=== PATIENT | male | born 1980 | race Caucasian/White ===

== ENCOUNTER 2017-07-04 20:50 | Emergency (ER) | payer OTHER ==
[~2017-07-04] VITALS: Ht 193 cm; Wt 140.6 kg
[~2017-07-04 20:50] MED LIST: BP MED PO; GLIP5 PO; METAMUCIL660 GM PO; METF500 PO; PROBIOTIC1 EAC1 PO
== END 2017-07-04 22:34 | disposition home or self-care (01) ==
LOC: ER 20:50
DX: M70.22 Olecranon bursitis, left elbow (principal); Z88.8 Allergy status to other drugs, medicaments and biological substances; Z79.899 Other long term (current) drug therapy; Z79.84 Long term (current) use of oral hypoglycemic drugs; I10 Essential (primary) hypertension; E11.9 Type 2 diabetes mellitus without complications
CPT/HCPCS: 73080; 99283

== ENCOUNTER → 2018-04-25 | Outpatient (CLI) | payer OTHER | END | disposition home or self-care (01) | LOC: LAB SHORT 08:07 → PLD 08:07 | DX: I87.2 Venous insufficiency (chronic) (peripheral) (principal) | CPT/HCPCS: 88305 ==

== ENCOUNTER 2020-01-15 15:39 | Emergency (ER) | payer OTHER ==
[~2020-01-15] VITALS: Ht 193 cm; Wt 145.2 kg
[2020-01-15] MEDS ORDERED: Robaxin-750750 MG PO (15:53)
[2020-01-15] MEDS ORDERED: IBUP800 PO (15:53)
== END 2020-01-15 15:55 | disposition home or self-care (01) ==
LOC: ER 15:39
DX: G89.29 Other chronic pain (principal); M54.5 Low back pain; I10 Essential (primary) hypertension; E11.9 Type 2 diabetes mellitus without complications; Z88.8 Allergy status to other drugs, medicaments and biological substances; Z79.84 Long term (current) use of oral hypoglycemic drugs; Z79.899 Other long term (current) drug therapy
CPT/HCPCS: 99283

== ENCOUNTER 2022-03-15 12:49 | Emergency (ER) | payer OTHER ==
[~2022-03-15] VITALS: Ht 193 cm; Wt 145.2 kg
[~2022-03-15 12:49] MED LIST changes: +IBUP800 PO; +Robaxin-750750 MG PO
[2022-03-15 14:24] LABS: BASOPHILS ABSOLUTE AUTO 0.03 K/mm3 (0.00-0.23); BASOPHILS PERCENT AUTO 0 % (0-2); EOSINOPHILS ABSOLUTE AUTO 0.02 K/mm3 (0.00-0.68); EOSINOPHILS PERCENT AUTO 0 % (0-6); Hematocrit 45.6 % (37.0-53.0); Hemoglobin 14.9 g/dL (13.5-17.5); IMMATURE GRAN ABSOLUTE AUTO 0.01 K/mm3 (0.00-0.10); IMMATURE GRAN PERCENT AUTO 0 % (0-1); LYMPHOCYTES ABSOLUTE AUTO 1.36 K/mm3 (0.84-5.20); LYMPHOCYTES PERCENT AUTO 18 % (21-46); MONOCYTES ABSOLUTE AUTO 0.55 K/mm3 (0.16-1.47); MONOCYTES PERCENT AUTO 7 % (4-13); Mean Corpuscular HGB 28.1 pg (26.0-34.0); Mean Corpuscular HGB Conc 32.7 g/dL (31.5-36.5); Mean Corpuscular Volume 86 fL (80-100); Mean Platelet Volume 10.4 fL (9.1-12.4); NEUTROPHILS ABSOLUTE AUTO 5.57 K/mm3 (1.96-9.15); NEUTROPHILS PERCENT AUTO 74 % (41-73); Platelet Count 259 K/mm3 (150-400); RDW Coefficient Variation 15.2 % (11.7-14.2); RDW Standard Deviation 48.3 fL (35.1-46.3); White Blood Cell Count 7.54 K/mm3 (4.00-11.30)
[2022-03-15 14:45] LABS: Albumin, Blood 3.8 g/dL (3.4-5.0); Bilirubin, Total 1.3 mg/dL (0.1-1.0); Bun/Creatinine Ratio 52.9 (12.0-20.0); Creatinine, Blood 0.23 mg/dL (0.60-1.20); Globulin, Blood 3.9 g/dL (2.2-4.0); Potassium, Blood 3.8 mmol/L (3.5-5.5); Total Protein, Blood 7.7 g/dL (6.4-8.2)
== END 2022-03-15 16:57 | disposition home or self-care (01) ==
LOC: ER 12:49
PROVIDERS: Student in an Organized Health Care Education/Training Program
DX: K59.00 Constipation, unspecified (principal); I10 Essential (primary) hypertension; E11.9 Type 2 diabetes mellitus without complications; Z79.899 Other long term (current) drug therapy; Z88.8 Allergy status to other drugs, medicaments and biological substances; Z79.84 Long term (current) use of oral hypoglycemic drugs
CPT/HCPCS: 36415; 74018; 80053; 85025; J3010; J7030

== ENCOUNTER 2023-01-02 14:02 | Emergency (ER) | payer OTHER ==
[~2023-01-02] VITALS: Ht 193 cm; Wt 154.2 kg
[2023-01-02 15:56] LABS: BASOPHILS ABSOLUTE AUTO 0.05 K/mm3 (0.00-0.23); BASOPHILS PERCENT AUTO 1 % (0-2); EOSINOPHILS PERCENT AUTO 2 % (0-6); Hematocrit 47.1 % (37.0-53.0); Hemoglobin 15.3 g/dL (13.5-17.5); IMMATURE GRAN ABSOLUTE AUTO 0.01 K/mm3 (0.00-0.10); IMMATURE GRAN PERCENT AUTO 0 % (0-1); LYMPHOCYTES ABSOLUTE AUTO 1.68 K/mm3 (0.84-5.20); LYMPHOCYTES PERCENT AUTO 27 % (21-46); MONOCYTES ABSOLUTE AUTO 0.53 K/mm3 (0.16-1.47); MONOCYTES PERCENT AUTO 9 % (4-13); Mean Corpuscular HGB 28.7 pg (26.0-34.0); Mean Corpuscular HGB Conc 32.5 g/dL (31.5-36.5); Mean Corpuscular Volume 88 fL (80-100); Mean Platelet Volume 10.7 fL (9.1-12.4); NEUTROPHILS ABSOLUTE AUTO 3.88 K/mm3 (1.96-9.15); NEUTROPHILS PERCENT AUTO 62 % (41-73); Platelet Count 228 K/mm3 (150-400); RDW Coefficient Variation 14.6 % (11.7-14.2); RDW Standard Deviation 47.6 fL (35.1-46.3); Red Blood Cell Count 5.34 M/mm3 (4.30-5.90); White Blood Cell Count 6.25 K/mm3 (4.00-11.30)
[2023-01-02 16:11] LABS: Albumin, Blood 3.6 g/dL (3.4-5.0); Albumin/Globulin Ratio 0.9 (0.8-1.8); Bilirubin, Total 0.9 mg/dL (0.1-1.0); Bun/Creatinine Ratio 75.6 (12.0-20.0); Calcium, Blood 8.6 mg/dL (8.5-10.1); Creatinine, Blood 0.17 mg/dL (0.60-1.20); Potassium, Blood 4.2 mmol/L (3.5-5.5); Total Protein, Blood 7.6 g/dL (6.4-8.2)
[2023-01-02 18:39] LABS: Source, Urine Fem Cath
[2023-01-02 18:48] LABS: Appearance, Urine Clear (Clear); Bilirubin, Urine Neg (Neg); Blood, Urine Neg (Neg); Color, Urine Yellow (P-Yellow); Glucose Qualitative, Urine 1+ (Neg); Ketones, Urine Neg (Neg); Leukocyte Esterase, Urine Neg (Neg); Nitrite, Urine Neg (Neg); Protein, Urine Neg (Neg); Urobilinogen, Urine NORM (Normal)
[2023-01-02] MEDS ORDERED: AMLODIPINE BESY10 MG PO (19:01)
[2023-01-02] MEDS ORDERED: TRAM50 PO (19:03)
[2023-01-02] MEDS ORDERED: METHOTREXATE2.510 PO (19:03)
[2023-01-02] MEDS ORDERED: BACLOFEN10 M4 PO (19:03)
[2023-01-02] MEDS ORDERED: FUROSEMIDE40 MG PO (19:03)
[2023-01-02] MEDS ORDERED: ACTOS30 MG PO (19:04)
[2023-01-02 19:15] VITALS: BP 142/72
[2023-01-02] MEDS ORDERED: OXYC5 PO (19:30)
== END 2023-01-02 19:48 | disposition home or self-care (01) ==
LOC: ER 14:02
PROVIDERS: Physician Assistant
DX: R10.9 Unspecified abdominal pain (principal); Z99.3 Dependence on wheelchair
CPT/HCPCS: 74176; 80053; 81003; 83690; 85025; 96360; 99284-25; A9270; J7030

== ENCOUNTER 2023-03-29 06:56 | Day surgery (SDC) | payer OTHER ==
[~2023-03-29] VITALS: Ht 193 cm; Wt 145.0 kg
[2023-03-29] VITALS (8 sets, daily range): BP systolic 130–151; BP diastolic 80–92
--- NOTE | 2023-03-29 06:24 | NUR ---
03/29/23 [address] MORRIS, SEE ANESTHESIA RECORDS.
[~2023-03-29 06:56] MED LIST changes: +ACTOS30 MG PO; +AMLODIPINE BESY10 MG PO; +BACLOFEN10 M4 PO; +FUROSEMIDE40 MG PO; +Glycopyrrolate 0.2 MG/ML 5ML VIAL ONE; +Lactated Ringer's 1,000 ML IV SCH; +Lidocaine HCl 2% 20 ML MDV ONE; +METHOTREXATE2.510 PO; +OXYC5 PO; +Ondansetron HCl 2 MG / ML 2ML Vial ONE; +POTCHL20ER PO; +TRAM50 PO; +TRIDERM28.4 GM TOP; +propofoL 0 ML IV ONE; +propofoL 20 ML IV ONE
[2023-03-29] MEDS ORDERED: Lidocaine HCl 4% 5 ML SDA INH ONE (07:25)
[2023-03-29] MEDS ORDERED: Lidocaine HCl 4% 5 ML SDA ONE (07:27)
--- NOTE | 2023-03-29 07:35 | NUR ---
PT HERE via wheelchair W/ . Patient confirms NPO status and agrees with scheduled surgery. History, Chart, Medications and Allergies reviewed before start of procedure.Pre-Op teaching done. Pt verbalizes understanding. Patient States Post-Procedure ride home has been arranged.
[2023-03-29] MEDS ORDERED: Ketamine HCL 10 MG/ML 5ML SYR ONE (07:50)
[2023-03-29] MEDS ORDERED: FentaNYL Citrate 50 MCG/ML 2 ML Injection ONE (08:05)
[2023-03-29] MEDS ORDERED: Lidocaine HCl 2% Jelly 120MG/6ML SYR (20MG PER ML) ONE (08:07)
[2023-03-29] MEDS ORDERED: Midazolam HCl 1MG / ML 2ML Vial ONE (08:10)
[2023-03-29] MEDS ORDERED: Midazolam HCl 1MG / ML 2ML Vial IV ONE (08:10)
[2023-03-29] MEDS ORDERED: Rocuronium Bromide 10 MG/ML 5ML Injection IV ONE (08:11)
[2023-03-29] MEDS ORDERED: Dexamethasone Sod Phos 10 MG/ML 1ML VIAL ONE (08:43)
[2023-03-29] MEDS ORDERED: Sugammadex Sodium 200 MG/2ML SDV (100 MG/ML) ONE (08:48)
[2023-03-29] MEDS ORDERED: FentaNYL Citrate 50 MCG/ML 2 ML Injection IV PRN ×2 (08:55→09:00)
[2023-03-29] MEDS ORDERED: Ondansetron HCl 2 MG / ML 2ML Vial IV PRN (09:00)
--- NOTE | 2023-03-29 10:10 | NUR ---
KETURAH LIFT USED TO ASSIST PT TO W/C. ASSISTING PT W/ GETTING DRESSED. Discharge instructions reviewed with patient. Patient verbalizes understanding. Copy given to patient to take home. Discharged via PERSONAL wheelchair to private car for ride home. PT DECLINED PO INTAKE.
== END 2023-03-29 10:10 | disposition home or self-care (01) ==
LOC: ORSCMMR 06:56 → ORD 08:00 → ORSCMMR 08:00
PROVIDERS: Internal Medicine Gastroenterology
PROC: 0DBE8ZX Excision of Large Intestine, Via Natural or Artificial Opening Endoscopic, Diagnostic (ICD-10-PCS; principal; 2023-03-29 08:00)
PROC: 0DB98ZX Excision of Duodenum, Via Natural or Artificial Opening Endoscopic, Diagnostic (ICD-10-PCS; principal; 2023-03-29 08:00)
PROC: 0DBL8ZX Excision of Transverse Colon, Via Natural or Artificial Opening Endoscopic, Diagnostic (ICD-10-PCS; principal; 2023-03-29 08:00)
PROC: 0DBH8ZX Excision of Cecum, Via Natural or Artificial Opening Endoscopic, Diagnostic (ICD-10-PCS; principal; 2023-03-29 08:00)
PROC: 0DBN8ZX Excision of Sigmoid Colon, Via Natural or Artificial Opening Endoscopic, Diagnostic (ICD-10-PCS; principal; 2023-03-29 08:00)
PROC: 0DBK8ZX Excision of Ascending Colon, Via Natural or Artificial Opening Endoscopic, Diagnostic (ICD-10-PCS; principal; 2023-03-29 08:00)
DX: K92.1 Melena (principal); R19.7 Diarrhea, unspecified; R10.12 Left upper quadrant pain; K63.5 Polyp of colon; K29.80 Duodenitis without bleeding; E11.9 Type 2 diabetes mellitus without complications; I10 Essential (primary) hypertension; M48.8X9 Other specified spondylopathies, site unspecified; G47.33 Obstructive sleep apnea (adult) (pediatric); E66.01 Morbid (severe) obesity due to excess calories; Z68.38 Body mass index [BMI] 38.0-38.9, adult; Z79.899 Other long term (current) drug therapy
CPT/HCPCS: 82947; 88305; 88342; A9270; J1100; J2001; J2250; J2405; J2704; J3010; J7120

== ENCOUNTER → 2024-04-25 | Outpatient (CLI) | payer OTHER ==
[~2024-04-25] MED LIST changes: -Glycopyrrolate 0.2 MG/ML 5ML VIAL ONE; -Lactated Ringer's 1,000 ML IV SCH; -Lidocaine HCl 2% 20 ML MDV ONE; -Ondansetron HCl 2 MG / ML 2ML Vial ONE; -propofoL 0 ML IV ONE; -propofoL 20 ML IV ONE
[2024-04-25 16:36] LABS: Bun/Creatinine Ratio 69.9 (12.0-20.0); Calcium, Blood 8.8 mg/dL (8.5-10.1); Creatinine, Blood 0.19 mg/dL (0.60-1.20); Potassium, Blood 3.9 mmol/L (3.5-5.5)
== END ==
LOC: LAB 11:45 → LAB SHORT 11:45
PROVIDERS: Family Medicine
DX: E87.6 Hypokalemia (principal)
CPT/HCPCS: 80048